=== PATIENT | female | born 1960 | race Caucasian/White ===

== ENCOUNTER 2017-02-11 18:37 | Emergency (ER) | payer BC ==
[~2017-02-11] VITALS: Ht 157.5 cm; Wt 54.2 kg
[2017-02-11 18:39] VITALS: BP 137/64
[2017-02-11] MEDS ORDERED: DEXAMETHASONE 4 MG/ML, 1ML ONE (19:14)
[2017-02-11] MEDS ORDERED: DEXAMETHASONE 4 MG/ML, 1ML PO ONE (19:30)
== END 2017-02-11 19:32 | disposition home or self-care (01) ==
LOC: ED 19:31
DX: J20.9 Acute bronchitis, unspecified (principal); E78.00 Pure hypercholesterolemia, unspecified; I10 Essential (primary) hypertension
CPT/HCPCS: 93005; 99283; J1100